=== PATIENT | male | born 1965 | race Caucasian/White ===

== ENCOUNTER 2024-11-17 14:34 | Outpatient (CLI) | payer OTHER, SELFPAY ==
--- NOTE | 2024-11-17 14:38 | XR_ITS ---
FINAL REPORT CLINICAL HISTORY: Right shoulder pain, chronic COMPARISON: None FINDINGS: 2 views of the right shoulder were obtained. There is no acute fracture or dislocation. The joint space is preserved. Soft tissues are unremarkable. IMPRESSION: No acute osseous abnormality of the right shoulder. Reviewed, Interpreted and Dictated by Karen Reynolds MD Transcribed by Leatha Kumari Authenticated and [facility]
--- NOTE | 2024-11-17 14:38 | XR_ITS ---
FINAL REPORT CLINICAL HISTORY: Left Shoulder pain, chronic COMPARISON: None FINDINGS: 2 views of the left shoulder were obtained. There is no acute fracture or dislocation. The joint space is preserved. Soft tissues are unremarkable. IMPRESSION: No acute osseous abnormality of the left shoulder. Reviewed, Interpreted and Dictated by Karen Reynolds MD Transcribed by Leatha Kumari Authenticated and [facility]
== END 2024-11-17 23:59 | disposition home or self-care (01) ==
LOC: RAD 14:35
PROVIDERS: Visit Provider Physician Assistant Surgical
DX: M25.511 Pain in right shoulder (principal); M25.512 Pain in left shoulder
CPT/HCPCS: 73030

== ENCOUNTER 2024-12-01 15:12 | Outpatient (CLI) | payer OTHER, SELFPAY ==
--- NOTE | 2024-12-01 15:15 | MR_ITS ---
FINAL REPORT TECHNIQUE: Multiplanar MR without contrast CLINICAL HISTORY: chronic right shoulder pain FINDINGS: Marrow signal: Unremarkable Glenohumeral joint: Mild degenerative changes. Moderate-sized joint effusion. Superior subluxation of the humeral head. AC joint: No obvious impingement. Mild arthropathy. Fluid in the subacromial bursa. Rotator cuff: Near complete tear of the supraspinatus tendon with only the posterior fibers remaining intact. Torn tendon is retracted 4 cm proximally. High-grade partial tear of the subscapularis tendon is seen. There is a focal full-thickness tear of the distal infraspinatus tendon involving the anterior portion measuring 9 mm. Labrum: Normal morphology without tear Biceps tendon: Medial subluxation of the long head of the biceps tendon without tear. IMPRESSION: 1. Significant tears involving the supraspinatus and subscapularis tendons. 2. Medial subluxation of the long head of the biceps tendon. Reviewed, Interpreted and Dictated by Isaac Reyes MD Transcribed by Chela England Authenticated and [facility]
== END 2024-12-01 23:59 | disposition home or self-care (01) ==
LOC: RAD 15:14
PROVIDERS: Visit Provider Physician Assistant Surgical
DX: M75.111 Incomplete rotator cuff tear or rupture of right shoulder, not specified as traumatic (principal); S46.111A Strain of muscle, fascia and tendon of long head of biceps, right arm, initial encounter; M19.011 Primary osteoarthritis, right shoulder; M19.012 Primary osteoarthritis, left shoulder
CPT/HCPCS: 73221

== ENCOUNTER 2024-12-08 16:00 | Outpatient (RCR) | payer OTHER, SELFPAY ==
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
== END 2024-12-08 23:59 | disposition home or self-care (01) ==
LOC: OT 16:00
PROVIDERS: Visit Provider Physician Assistant Surgical
DX: M19.011 Primary osteoarthritis, right shoulder (principal); M19.012 Primary osteoarthritis, left shoulder
CPT/HCPCS: 97014; 97110; 97140; 97166; G0283